=== PATIENT | female | born 1995 | race Caucasian/White ===

== ENCOUNTER 2016-10-19 01:27 | Emergency (ER) | payer OTHER ==
[~2016-10-19] VITALS: Ht 154.9 cm; Wt 48.2 kg
[2016-10-19 01:38] VITALS: BP 129/91; TEMP 97.9
[2016-10-19] MEDS ORDERED: BIRTH CONTROL (01:41)
[2016-10-19 02:37] VITALS: PULSE 88
== END 2016-10-19 02:38 | disposition home or self-care (01) ==
LOC: COL.ER 01:27
DX: S01.81XA Laceration without foreign body of other part of head, initial encounter (principal); W04.XXXA Fall while being carried or supported by other persons, initial encounter; Y92.480 Sidewalk as the place of occurrence of the external cause